=== PATIENT | female | born 1980 | race Caucasian/White ===

== ENCOUNTER 2019-08-03 15:45 | Emergency (ER) | payer SELFPAY ==
[2019-08-03 15:53] VITALS: BP 144/94; PULSE 82; RESP 18; TEMP 36.7; O2SAT 91; BMI 36.0
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
[2019-08-03 16:45] VITALS: BP 136/89; PULSE 82; RESP 16; O2SAT 96
== END 2019-08-03 16:45 | disposition home or self-care (01) ==
LOC: ER 17:27
PROVIDERS: Emergency Provider Physician Assistant; PCP Family Medicine
DX: S61.412A Laceration without foreign body of left hand, initial encounter (principal); W26.0XXA Contact with knife, initial encounter; F17.210 Nicotine dependence, cigarettes, uncomplicated
CPT/HCPCS: 12001; 99281; 99282

== ENCOUNTER 2020-03-12 07:25 | Emergency (ER) | payer SELFPAY ==
[2020-03-12 07:27] VITALS: BP 115/100; PULSE 92; RESP 18; TEMP 36.6; O2SAT 97; BMI 36.0
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
[2020-03-12] MEDS: sulfamethoxazole-trimeth DS 160-800 mg Tablet 1 TAB PO (07:52)
[2020-03-12] MEDS: HYDROcodone-acetaminophen 10-325 mg Tablet 1 TAB PO (07:52)
[2020-03-12] MEDS: lidocaine 1% INJ 20 mL INJECTION (07:53)
[2020-03-12 08:14] VITALS: PULSE 67; O2SAT 97
== END 2020-03-12 08:15 | disposition home or self-care (01) ==
PROVIDERS: Emergency Provider Nurse Practitioner Family; PCP Family Medicine
DX: L02.215 Cutaneous abscess of perineum (principal); F17.210 Nicotine dependence, cigarettes, uncomplicated
CPT/HCPCS: 10060; 12345; 56405; 99281; 99283

== ENCOUNTER 2020-07-31 13:17 | Emergency (ER) | payer SELFPAY ==
[2020-07-31 13:33] VITALS: BP 119/80; PULSE 86; RESP 18; TEMP 36.7; O2SAT 97; BMI 30.9
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
[2020-07-31 16:14] VITALS: BP 130/80; PULSE 78; O2SAT 98
== END 2020-07-31 16:15 | disposition home or self-care (01) ==
PROVIDERS: Emergency Provider Physician Assistant
DX: T63.301A Toxic effect of unspecified spider venom, accidental (unintentional), initial encounter (principal); F17.210 Nicotine dependence, cigarettes, uncomplicated
CPT/HCPCS: 87070; 87075; 87077; 87186; 87205; 99282

== ENCOUNTER 2021-04-13 15:03 | Emergency (ER) | payer SELFPAY ==
[2021-04-13 15:17] VITALS: BP 114/80; PULSE 96; RESP 22; TEMP 36.9; O2SAT 99; BMI 29.2
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
[2021-04-13] MEDS: tetanus-dipt-pertussis 0.5 mL SDV IM (17:01)
[2021-04-13] MEDS: ketorolac 30 mg/mL INJ IM (17:02)
[2021-04-13 17:21] VITALS: BP 115/78; PULSE 91; RESP 20; TEMP 36.9; O2SAT 99
== END 2021-04-13 17:24 | disposition home or self-care (01) ==
PROVIDERS: Emergency Provider Physician Assistant
DX: S91.311A Laceration without foreign body, right foot, initial encounter (principal); S90.01XA Contusion of right ankle, initial encounter; S52.691A Other fracture of lower end of right ulna, initial encounter for closed fracture; S50.02XA Contusion of left elbow, initial encounter; Y00.XXXA Assault by blunt object, initial encounter; F17.210 Nicotine dependence, cigarettes, uncomplicated; Z23 Encounter for immunization
CPT/HCPCS: 12001; 73080; 73110; 73610; 90471; 90715; 96372; 99283; J1885

== ENCOUNTER 2021-04-23 16:35 | Outpatient (CLI) | payer SELFPAY | END 2021-04-23 16:36 | disposition home or self-care (01) | LOC: SPT 16:35 | PROVIDERS: Visit Provider Orthopaedic Surgery | DX: Z46.89 Encounter for fitting and adjustment of other specified devices (principal); S52.691D Other fracture of lower end of right ulna, subsequent encounter for closed fracture with routine healing; X58.XXXD Exposure to other specified factors, subsequent encounter | CPT/HCPCS: 97760; L3982 ==

== ENCOUNTER 2023-09-14 17:11 | Emergency (ER) | payer SELFPAY ==
[2023-09-14 17:28] VITALS: BP 122/79; PULSE 107; RESP 16; TEMP 36.7; O2SAT 99
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
[2023-09-14] MEDS: ketorolac 60 mg/2 mL INJ IM (18:56)
--- NOTE | 2023-09-16 07:53 | DCPLANNER ---
message was sent to ortho for er f/u
== END 2023-09-14 19:10 | disposition home or self-care (01) ==
PROVIDERS: Emergency Provider Physician Assistant
DX: S60.221A Contusion of right hand, initial encounter (principal); F17.210 Nicotine dependence, cigarettes, uncomplicated; Y00.XXXA Assault by blunt object, initial encounter
CPT/HCPCS: 73130; 96372; 99284; J1885

== ENCOUNTER 2024-01-27 11:32 | Emergency (ER) | payer SELFPAY ==
[2024-01-27 11:39] VITALS: BP 138/85; PULSE 112; RESP 18; TEMP 36.7; O2SAT 92; BMI 27.4
--- NOTE | 2024-01-27 11:40 | XR_ITS ---
WS: [id number] Right hip, AP and frog-leg views, 01/27/2024 Clinical Data: pain Comparison: None. Findings: The internal fixation of the right hip fracture with an oblique femoral neck nail and a proximal inte rtrochanteric jia is in good position. No periprosthetic fractures or loosening is seen. The adjacent pelvis is unremarkable. The pubic symphysis and SI joints are normal. There is a fallopian tube occl usion device. XR/XR hip RT 2-3V wo/w pel* [id number] Impression: Stable internal fixation of intertrochanteric right hip fracture. Tonnis classification:
--- NOTE | 2024-01-27 11:40 | XR_ITS ---
WS: [id number] Right femur and thigh, AP and lateral views, 01/27/2024 Clinical Data: pain Comparison: None. Findings: There is an oblique nail in the right femoral neck. There is a long intra medullary jia the length of the femur reducing a mid shaft right femoral fracture. No new fractures are seen. The soft tissues are normal. XR/XR femur RT min 2V* [id number] Impression: Internal fixation of right mid femoral fracture.
[2024-01-27 11:55] VITALS: RESP 20; O2SAT 99
[2024-01-27] MEDS: morphine 4 mg/mL SDV 1 mL IM (11:55)
[2024-01-27] MEDS: HYDROcodone-acetaminophen 7.5-325 mg Tablet 1 TAB PO (11:56)
[2024-01-27 12:01] VITALS: BP 115/97; PULSE 112; RESP 20; O2SAT 96
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
[2024-01-27 13:00] VITALS: BP 111/72; RESP 106; O2SAT 96
[2024-01-27 13:49] VITALS: BP 116/75; PULSE 95; O2SAT 96
== END 2024-01-27 13:50 | disposition home or self-care (01) ==
PROVIDERS: Emergency Provider Emergency Medicine
DX: M79.604 Pain in right leg (principal); F17.210 Nicotine dependence, cigarettes, uncomplicated
CPT/HCPCS: 73502; 73552; 96372; 99284; J2270

== ENCOUNTER → 2024-08-24 15:59 | Outpatient (BNVA) | payer SELFPAY | PROVIDERS: Visit Provider Nurse Practitioner | DX: S81.811A Laceration without foreign body, right lower leg, initial encounter (principal); W22.8XXA Striking against or struck by other objects, initial encounter | CPT/HCPCS: 73552 ==

== ENCOUNTER 2024-12-14 13:01 | Inpatient (IN) | payer OTHER, MEDICAID, SELFPAY ==
[2024-12-14 13:04] VITALS: BP 129/78; PULSE 90; TEMP 36.6; O2SAT 98
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
[2024-12-14 13:37] LABS: Hematocrit 40.7 % (36-47); Hemoglobin 14.00 g/dL (11.27-16.99); Mean Corpuscular HGB Conc 34.4 g/dL (30-55); Mean Corpuscular Hemoglobin 31.9 pg (27-33); Mean Corpuscular Volume 92.7 fl (85-98); Nucleated Red Blood Cells % 0 %; Platelet Count 299 10^3/cmm (157-399); Red Blood Count 4.39 10^6/uL (3.85-5.65); White Blood Count 8.12 10^3/uL (3.29-11.43)
--- NOTE | 2024-12-14 13:39 | ECG_ITS ---
[facility] Date: 2024-12-14 Pat Name: Kiesha Mora Department: Room: Gender: Female Technical Director: : 1980 Requested By: Magdalene Bella Order Number: [id number] Amira MD: Ryan Payton M.D. Measurements Intervals [place] Rate: 87 P: 66 CO: 144 QRS: 91 QRSD: 87 T: 51 QT: 360 QTc: 435 Interpretive Statements SINUS RHYTHM BORDERLINE RIGHT AXIS DEVIATION [QRS AXIS > 90] No previous ECG available for comparison Electronically Signed On 12-16-2024 13:10:57 CDT by Ryan Payton M.D. [email or web address]
[2024-12-14 13:55] LABS: Glucose Urine UA Negative (Normal); Nitrate Urine Negative (Negative); Specific Gravity, Urine 1.022 (1.005-1.030)
[2024-12-14 13:57] LABS: Add Urine Microscopic? YES; HCG Qualitative Urine. Negative (Negative)
[2024-12-14 14:02] LABS: PCP Screen Urine Negative (Negative)
[2024-12-14 14:05] LABS: Acetaminophen < 5.0 ug/mL (10-30); Alanine Aminotransferase 91 U/L (0-33); Albumin Level 4.3 g/dL (3.5-5.2); Alcohol Level < 10 mg/dL (0-10); Alkaline Phosphatase 52 U/L (35-105); Anion Gap 14.9 (5-19); Aspartate Amino Transferase 46 U/L (0-32); Blood Urea Nitrogen 13 mg/dL (6-20); Calcium 9.3 mg/dL (8.5-10.5); Carbon Dioxide 22 mmol/L (22-29); Chloride 105 mmol/L (98-107); Creatinine Clr Calc Pharmacy 106.0133; Globulin 3.8 g/dL (1.3-4.6); Glucose 95 mg/dL (65-115); Osmolality Calculated 286 mOsm/kg (285-295); Potassium 3.9 mmol/L (3.5-5.1); Salicylate < 0.3 mg/dL (3-10); Sodium 138 mmol/L (136-145); Thyroid Stimulating Hormone 0.70 uIU/mL (0.27-4.20); Total Protein 8.1 g/dL (6.6-8.7)
[2024-12-14 14:06] LABS: UA Slide Review UA Slide Review Perf
[2024-12-14 15:02] VITALS: BP 130/77; PULSE 87; O2SAT 98
[2024-12-14 15:35] VITALS: BP 115/79; PULSE 83; RESP 16; TEMP 37; O2SAT 97
[2024-12-14 20:36] VITALS: BP 113/69; PULSE 71; RESP 18; TEMP 36.8; O2SAT 97
[2024-12-15 06:00] VITALS: BP 115/78; PULSE 70; RESP 16; TEMP 36.7; O2SAT 99
--- NOTE | 2024-12-15 09:19 | NUR.SHIFT ---
Pt states that she slept good last night. She rates her anxiety a 5/10 and depression 5/10. No reports of SI/HI or hallucinations. She rates her back pain a 4/10 and R leg a 6/10. I got her some tylenol for that. She is calm and cooperative on assessment.
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
[2024-12-15 14:00] VITALS: BP 121/71; PULSE 69; RESP 16; TEMP 37.1; O2SAT 98
--- NOTE | 2024-12-15 18:26 | PC.NURSE ---
Dr. Love gave a v/o for Celexa 20mg po daily, start the dose now. Prazosin 1mg po at HS.
[2024-12-15 20:43] VITALS: BP 101/66; PULSE 77; RESP 18; TEMP 36.8; O2SAT 95
[2024-12-16 06:00] VITALS: BP 105/68; PULSE 96; RESP 17; TEMP 36.7; O2SAT 97
[2024-12-16 14:00] VITALS: BP 113/67; PULSE 72; RESP 18; TEMP 36.7; O2SAT 96
--- NOTE | 2024-12-16 18:12 | P.NPUPN_ITS ---
Subjective NPU 2 Subjective: Patient presented today reporting that she is tolerating her medications thus far. She reports doing okay and adjusting to the unit. She reports being homesick and to go home as soon as possible. We discussed monitoring her for a couple more days and that this would not be an extensive stay. She denied any side effects to the medicine. Mental Status Exam 2 MSE Comments: This is an overweight versus obese white female in hospital scrubs with poor grooming but appropriate eye contact. Poor dentition. No abnormal movements except for mild psychomotor agitation. Cooperative with exam and moderate distress. Speech was normal rate and slightly decreased volume. Mood described as depressed, anxious and overwhelmed, affect congruent and tearful. Thought process linear/organized. Thought content: Patient endorses at times having passive wish but denies suicidal ideation or homicidal ideation, there were no delusions reported or noted, she denied any auditory or visual hallucinations. Reports feeling sad and anxious, particularly due to the recent loss of her granddaughter last week and other family losses. Diagnosed with depression in 2005 and experiences anxiety, including social anxiety, avoiding places with more than five people. Denies current thoughts to hurt or kill herself or others, although sometimes feels like stopping somebody. Denies paranoia or feeling like people are out to get her. Reports bad dreams and nightmares related to traumatic events involving her son's girlfriend and granddaughter. Experiences significant stressors, including family losses and challenges with drug addiction. Attention and concentration were intact and memory appeared reliable but no more formally tested. She is alert and oriented x 3. Insight and judgment appear fair and impulse control limited. Vitals/I&O/Wt Last Vital Signs Temp 98.1 F 12/16/24 19:30 Pulse 85 12/16/24 19:30 Resp 19 H 12/16/24 19:30 BP 122/70 12/16/24 19:30 Pulse Ox 94 12/16/24 19:30 O2 Del Method Room Air 12/16/24 19:30 Weight last 48 hrs Weight 84.878 kg Data NPU 12/14/24 13:32 12/14/24 13:32 A&P Assessment and plan 1. Post-traumatic stress disorder, chronic: 2. Major depressive disorder, recurrent, moderate: 3. Generalized anxiety disorder: 4. Opioid use disorder, moderate, in sustained remission: 5. Acute anxiety: 6. Other stimulant dependence, uncomplicated: 7. Cannabis dependence, uncomplicated: Plan: This is a 44-year-old white female with with past mental health and addiction treatment with no recent treatment with reports of significant sobriety over the past 4 to 6 years since she was in treatment but recent stressors including multiple deaths including the of her 1-year-old grandchild last week have led to her to feel vulnerable and somewhat fearful for her sobriety leading to her hospitalization desire to restart medication and ensure she has appropriate recovery services. Major depressive disorder, recurrent, currently exacerbated by recent bereavement (loss of granddaughter). Generalized anxiety disorder with recent increase in social anxiety symptoms. History of substance use disorder with relapse in response to psychosocial stressors. History of suicide attempt in 2005, currently denies suicidal ideation. Trauma-related nightmares following multiple recent and past losses. Plan Restart prior medication for management of depressive symptoms, given prior positive response. Advised to take it a day at a time and monitor for changes in mood and anxiety. 1. Restarted Celexa 20 mg p.o. daily, prazosin 1 mg p.o. nightly and allow for access to as needed Vistaril. 2. Encourage individual, group and milieu therapy. 3. Continue to 15-minute checks for safety. 4. Obtain collateral information. 5. Encourage sober living treatment after discharge to the highest level care to which she is willing to commit. PDMP PDMP Reviewed: Not Reviewed Involuntary Hold Information 2 Hold Status: Date/Time Hold Expires: voluntary Attestations NPU 2 Medical Necessity Statement*: Inpatient hospitalization is medically necessary and the clinically appropriate intervention at this time. We will monitor/initiate medications and make changes as indicated. Likely length of stay 3-5 days. Coding Level of Care Code Acute Code for [facility] Diagnoses Post-traumatic stress disorder, chronic F43.12 Major depressive disorder, recurrent, moderate F33.1 Generalized anxiety disorder F41.1 Opioid use disorder, moderate, in sustained remission F11.21 Acute anxiety F41.9 Other stimulant dependence, uncomplicated F15.20 Cannabis dependence, uncomplicated F12.20
[2024-12-16 19:30] VITALS: BP 122/70; PULSE 85; RESP 19; TEMP 36.7; O2SAT 94
[2024-12-17 00:50] VITALS: BMI 32.1
[2024-12-17 06:00] VITALS: BP 120/64; PULSE 79; RESP 18; TEMP 36.7; O2SAT 98
[2024-12-17 14:00] VITALS: BP 144/80; PULSE 77; RESP 18; O2SAT 99
--- NOTE | 2024-12-17 18:53 | P.NPUPN_ITS ---
Subjective NPU 2 Subjective: Patient presented today reporting that she is doing better. She endorsed feeling that she is ready and needing to discharge. We had a lengthy discussion about the family's arrangements and the is planned for Wednesday. 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 We discussed a plan to discharge her in the morning given the fact that we want to ensure that she leaves here with appointments and resources and a tentative plan for who will be prescribing her medications so she does not get off of it again secondary to lack of follow-up. She was appreciative of her treatment here and denied any side effects to her medication. Mental Status Exam 2 MSE Comments: This is an overweight versus obese white female in hospital scrubs with poor grooming but appropriate eye contact. Poor dentition. No abnormal movements except for mild psychomotor agitation. Cooperative with exam in mild distress. Speech was normal rate and slightly decreased volume. Mood described as feeling better and thankful for the help, affect congruent and less tearful. Thought process linear/organized. Thought content: Patient denied suicidal ideation or homicidal ideation, there were no delusions reported or noted, she denied any auditory or visual hallucinations. Attention and concentration were intact and memory appeared reliable but no more formally tested. She is alert and oriented x 3. Insight and judgment appear fair and impulse control limited but improving. Vitals/I&O/Wt Last Vital Signs Temp 98.4 F 12/17/24 22:00 Pulse 75 12/17/24 22:00 Resp 18 12/17/24 22:00 BP 124/72 12/17/24 22:00 Pulse Ox 95 12/17/24 22:00 O2 Del Method Room Air 12/17/24 22:00 Weight last 48 hrs Weight 84.878 kg Data NPU 12/14/24 13:32 12/14/24 13:32 A&P Assessment and plan 1. Post-traumatic stress disorder, chronic: 2. Major depressive disorder, recurrent, moderate: 3. Generalized anxiety disorder: 4. Opioid use disorder, moderate, in sustained remission: 5. Acute anxiety: 6. Other stimulant dependence, uncomplicated: 7. Cannabis dependence, uncomplicated: Plan: This is a 44-year-old white female with with past mental health and addiction treatment with no recent treatment with reports of significant sobriety over the past 4 to 6 years since she was in treatment but recent stressors including multiple deaths including the of her 1-year-old grandchild last week have led to her to feel vulnerable and somewhat fearful for her sobriety leading to her hospitalization desire to restart medication and ensure she has appropriate recovery services. Major depressive disorder, recurrent, currently exacerbated by recent bereavement (loss of granddaughter). Generalized anxiety disorder with recent increase in social anxiety symptoms. History of substance use disorder with relapse in response to psychosocial stressors. History of suicide attempt in 2005, currently denies suicidal ideation. Trauma-related nightmares following multiple recent and past losses. Plan Restart prior medication for management of depressive symptoms, given prior positive response. Advised to take it a day at a time and monitor for changes in mood and anxiety. 1. Restarted Celexa 20 mg p.o. daily, prazosin 1 mg p.o. nightly and allow for access to as needed Vistaril. 2. Encourage individual, group and milieu therapy. 3. Continue to 15-minute checks for safety. 4. Obtain collateral information. 5. Encourage sober living treatment after discharge to the highest level care to which she is willing to commit. 6. Tentative plan for discharge in the morning with appropriate outpatient appointments. PDMP PDMP Reviewed: Not Reviewed Involuntary Hold Information 2 Hold Status: Date/Time Hold Expires: voluntary Attestations NPU 2 Medical Necessity Statement*: Inpatient hospitalization is medically necessary and the clinically appropriate intervention at this time. We will monitor/initiate medications and make changes as indicated. Likely length of stay 1 day. Coding Level of Care Code Acute Code for [facility] Diagnoses Post-traumatic stress disorder, chronic F43.12 Major depressive disorder, recurrent, moderate F33.1 Generalized anxiety disorder F41.1 Opioid use disorder, moderate, in sustained remission F11.21 Acute anxiety F41.9 Other stimulant dependence, uncomplicated F15.20 Cannabis dependence, uncomplicated F12.20
[2024-12-17 22:00] VITALS: BP 124/72; PULSE 75; RESP 18; TEMP 36.9; O2SAT 95
[2024-12-18 06:00] VITALS: BP 125/81; PULSE 71; RESP 16; TEMP 37; O2SAT 96
[2024-12-18 09:45] VITALS: BP 125/81; PULSE 71; RESP 16; TEMP 36.6; O2SAT 98
== END 2024-12-18 10:03 | disposition home or self-care (01) | DRG 885 ==
LOC: ER 13:33 → NP 15:02
PROVIDERS: Admitting Provider Psychiatry & Neurology Psychiatry; Emergency Provider Physician Assistant; Visit Provider Psychiatry & Neurology Psychiatry
DX: F33.1 Major depressive disorder, recurrent, moderate (principal); F15.21 Other stimulant dependence, in remission; F41.1 Generalized anxiety disorder; F12.20 Cannabis dependence, uncomplicated; Z63.4 Disappearance and death of family member; Z91.51 Personal history of suicidal behavior; F11.91 Opioid use, unspecified, in remission; Z81.8 Family history of other mental and behavioral disorders; Z62.810 Personal history of physical and sexual abuse in childhood; Z62.811 Personal history of psychological abuse in childhood; E66.9 Obesity, unspecified; Z68.32 Body mass index [BMI] 32.0-32.9, adult; F43.12 Post-traumatic stress disorder, chronic
CPT/HCPCS: 36415; 80053; 80306; 80307; 81001; 81025; 84443; 85025; 93005; 97150; 97165; 99285; J9999